=== PATIENT | female | born 1955 | race Hispanic/Latino ===

== ENCOUNTER 2022-11-08 12:00 | Inpatient (IN) | payer MEDICARE ==
[~2022-11-08] VITALS: Ht 160 cm; Wt 76.2 kg
[2022-11-08 09:32] LABS: BASOPHILS # (AUTO) 0.07 K/uL (0.00-0.20); BASOPHILS % (AUTO) 0.9 % (0.0-5.0); EOSINOPHILS # (AUTO) 0.23 K/uL (0.00-0.70); HEMATOCRIT 42.4 % (36-48); IMMATURE GRANULOCYTE ABSOLUTE 0.04 K/uL (0-1); LYMPHOCYTES % (AUTO) 26.8 % (21.0-51.0); MEAN CORPUSCULAR HEMOGLOBIN 27.9 pg (27.0-33.0); MEAN CORPUSCULAR VOLUME 84.6 fL (79-99); MONOCYTES # (AUTO) 0.5 K/uL (0.1-1.0); MONOCYTES % (AUTO) 6.5 % (3.0-13.0); NEUTROPHILS # (AUTO) 4.7 K/uL (1.8-7.7); NEUTROPHILS % (AUTO) 62.3 % (40.0-77.0); PLATELET COUNT (AUTO) 254 K/uL (130-400); RED BLOOD CELL COUNT(AUTO) 5.01 MIL/uL (4.00-5.50); RED CELL DISTRIBUTION WIDTH 12.9 % (11.0-15.5); WHITE BLOOD COUNT (AUTO) 7.6 K/uL (4.8-10.8)
[2022-11-08 09:44] LABS: INR < 0.93 (0.85-1.15); PROTHROMBIN TIME 10.5 SEC (9.6-11.6)
[2022-11-08 09:45] LABS: PARTIAL THROMBOPLASTIN TIME 29.9 SEC (26.3-35.5)
[2022-11-08 09:46] VITALS: BP 176/81; PULSE 67; RESP 18
[2022-11-08 10:01] LABS: ALBUMIN 3.8 g/dL (3.5-5.0); CREATININE 1.1 mg/dL (0.5-1.5); POTASSIUM 3.9 mmol/L (3.5-5.1)
[2022-11-08 10:16] LABS: APPEARANCE,URINE CLEAR (CLEAR); BILIRUBIN,URINE NEGATIVE (NEGATIVE); COLOR,URINE LIGHT-YELLOW (YELLOW); GLUCOSE, URINE (UA) NEGATIVE (NEGATIVE); KETONES,URINE NEGATIVE (NEGATIVE); LEUKOCYTE ESTERASE ,URINE NEGATIVE Leu/uL (NEGATIVE); NITRATE,URINE NEGATIVE (NEGATIVE); OCCULT BLOOD,URINE NEGATIVE (NEGATIVE); PROTEIN,URINE NEGATIVE (NEGATIVE); UROBILINOGEN,URINE 0.2 mg/dL (0.2-1.0)
[2022-11-08 10:30] LABS: ADD UA MICROSCOPIC NO
[~2022-11-08 12:00] MED LIST: ALBUTEROL SULF IH; ASCO100031 PO; ATEN1TAB3 PO; BUPR-113 PO; ESCI-8 PO; FENO67CA14 PO; FISH1CAP63 PO; FLUT16H NS; LORA10TA7 PO; MAGN500C4 PO; MULT-1367 PO; POTA-202 PO; TEMA15CA PO; TRAM50TA4 PO; TYLENOL ARTHRITIS PO; VITAMIN D3 PO
[2022-11-11] VITALS (26 sets, daily range): BP systolic 93–146; BP diastolic 56–95; PULSE 61–98; RESP 14–20; O2SAT 96
[2022-11-11] MEDS ORDERED: KETOROLAC 30MG VIAL (30MG/ML) ONE (07:12)
[2022-11-11] MEDS ORDERED: ROPIVACAINE 0.5% 5MG/ML 30ML IJ ONE (07:12)
[2022-11-11] MEDS ORDERED: CLINDAMYCIN IVPB 900MG/50ML 0 ML IV ONE (07:15)
[2022-11-11] MEDS ORDERED: LACTATED RINGERS 1000ML 1,000 ML IV ONE (07:15)
[2022-11-11] MEDS ORDERED: CEFAZOLIN SODIUM 2 GM VIAL ONE (07:41)
[2022-11-11] MEDS ORDERED: TRANEXAMIC ACID 1000MG/10ML ONE ×2 (07:42→09:01)
[2022-11-11] MEDS ORDERED: SUCCINYLCHOLINE CHLORIDE 20 MG/ML 10 ML VIAL ONE (08:03)
[2022-11-11] MEDS ORDERED: LIDOCAINE PF 100MG/5ML (2%) SYRINGE 5ML ONE (08:03)
[2022-11-11] MEDS ORDERED: MIDAZOLAM HCL 1 MG/ML 2ML VIAL ONE (08:04)
[2022-11-11] MEDS ORDERED: PROPOFOL 10 MG/ML 20ML VIAL IV ONE (08:04)
[2022-11-11] MEDS ORDERED: ROCURONIUM 10MG/1ML SYR 10 MG/ML ML ONE (08:04)
[2022-11-11] MEDS ORDERED: FENTANYL CITRATE PF 50 MCG/1 ML 2ML VIAL ONE (08:05)
[2022-11-11] MEDS ORDERED: EPHEDRINE SULFATE 50 MG/ML AMPULE ONE (08:29)
[2022-11-11] MEDS ORDERED: GLYCOPYRROLATE 1 MG/5 ML SYRINGE ONE (09:05)
[2022-11-11] MEDS ORDERED: NEOSTIGMINE 5MG/5ML SYR IV ONE (10:18)
[2022-11-11] MEDS ORDERED: PHENYLEPHRINE HCL 10 MG/ML 1ML VIAL IV ONE (10:25)
[2022-11-11] MEDS ORDERED: TRAMADOL HCL 50 MG TABLET PO PRN (10:30)
[2022-11-11] MEDS ORDERED: POTASSIUM CHLORIDE 20MEQ/100ML 100 ML IV PRN (10:30)
[2022-11-11] MEDS ORDERED: FERROUS FUMARATE 324 MG TABLET PO PRN (10:30)
[2022-11-11] MEDS ORDERED: DiphenhydrAMINE HCL 50 MG/ML VIAL IVP PRN (10:30)
[2022-11-11] MEDS ORDERED: KETOROLAC 15MG/ML VIAL (15MG/ML) IV SCH (10:30)
[2022-11-11] MEDS ORDERED: CALCIUM CARB 500MG PO PRN (10:30)
[2022-11-11] MEDS ORDERED: POTASSIUM CHLORIDE 10% ELIXIR 20 MEQ/15 ML UDCUP PO PRN (10:30)
[2022-11-11] MEDS ORDERED: ONDANSETRON 4MG INJ IVP PRN (10:30)
[2022-11-11] MEDS ORDERED: MEPERIDINE-PF 25 MG/ML SYG ONE (11:11)
[2022-11-11] MEDS ORDERED: KETOROLAC 15MG/ML VIAL (15MG/ML) ONE (11:24)
[2022-11-11] MEDS: GABAPENTIN 100 MG CAPSULE PO SCH ×2 (13:40→21:03)
[2022-11-11] MEDS: HYDROCODONE/ACETAMINOPHEN 5/325 MG TAB PO PRN ×2 (15:33→23:36)
[2022-11-11] MEDS: CEFAZOLIN SODIUM 2 GM VIAL IVPB SCH ×2 (15:34→23:26)
[2022-11-11] MEDS: 0.9%NACL 1000ML 1,000 ML IV SCH ×2 (15:36→20:30)
[2022-11-11] MEDS: KETOROLAC 30MG VIAL (30MG/ML) IV SCH (21:03)
[2022-11-11] MEDS: CYCLOBENZAPRINE HCL 10 MG TABLET PO PRN (23:36)
[2022-11-12] VITALS (9 sets, daily range): BP systolic 91–136; BP diastolic 57–72; PULSE 70–95; RESP 17–20; O2SAT 96
[2022-11-12] MEDS: 0.9%NACL 1000ML 1,000 ML IV SCH (02:53)
[2022-11-12 04:35] LABS: HEMATOCRIT 27.5 % (36-48); MEAN CORPUSCULAR HEMOGLOBIN 28.2 pg (27.0-33.0); MEAN CORPUSCULAR HGB CONC 33.8 g/dL (32.0-36.0); MEAN CORPUSCULAR VOLUME 83.3 fL (79-99); RED BLOOD CELL COUNT(AUTO) 3.3 MIL/uL (4.00-5.50); RED CELL DISTRIBUTION WIDTH 13.1 % (11.0-15.5); WHITE BLOOD COUNT (AUTO) 10.4 K/uL (4.8-10.8)
[2022-11-12 04:50] LABS: CREATININE 0.9 mg/dL (0.5-1.5); POTASSIUM 3.2 mmol/L (3.5-5.1)
[2022-11-12] MEDS: KETOROLAC 30MG VIAL (30MG/ML) IV SCH (05:37)
[2022-11-12] MEDS: KCL 20 MEQ ERTAB PO PRN ×3 (06:23→12:02)
[2022-11-12] MEDS: POLYETHYLENE GLYCOL 3350 17 GM POWD.PACK PO SCH (08:18)
[2022-11-12] MEDS: GABAPENTIN 100 MG CAPSULE PO SCH (08:19)
[2022-11-12] MEDS: ASPIRIN 325MG EC TAB PO SCH (08:19)
[2022-11-12] MEDS: HYDROCODONE/ACETAMINOPHEN 5/325 MG TAB PO PRN ×4 (08:19→22:19)
[2022-11-12] MEDS ORDERED: KETOROLAC 30MG VIAL (30MG/ML) IV PRN (11:30)
[2022-11-12] MEDS: CYCLOBENZAPRINE HCL 10 MG TABLET PO PRN (22:19)
[2022-11-13] VITALS (8 sets, daily range): BP systolic 123–152; BP diastolic 61–92; PULSE 79–93; RESP 16–20; O2SAT 95–96
[2022-11-13] MEDS: HYDROCODONE/ACETAMINOPHEN 5/325 MG TAB PO PRN ×5 (04:53→21:14)
[2022-11-13] MEDS: POLYETHYLENE GLYCOL 3350 17 GM POWD.PACK PO SCH (08:49)
[2022-11-13] MEDS: ASPIRIN 325MG EC TAB PO SCH (08:49)
[2022-11-14 03:45] VITALS: BP 161/67; PULSE 91; RESP 18
[2022-11-14 08:00] VITALS: BP 147/86; PULSE 92; RESP 18
[2022-11-14] MEDS: ASPIRIN 325MG EC TAB PO SCH (09:07)
[2022-11-14] MEDS: POLYETHYLENE GLYCOL 3350 17 GM POWD.PACK PO SCH (09:07)
[2022-11-14] MEDS: HYDROCODONE/ACETAMINOPHEN 5/325 MG TAB PO PRN ×2 (09:08→12:56)
[2022-11-14] MEDS ORDERED: TEMAZEPAM 15 MG CAPSULE PO PRN (10:00)
[2022-11-14] MEDS ORDERED: LORATADINE 10 MG TABLET PO PRN (10:00)
[2022-11-14] MEDS ORDERED: FLUTICASONE PROPIONATE 50MCG/SPRAY 16 GM BOTTLE NS PRN (10:00)
[2022-11-14] MEDS ORDERED: BISACODYL 10 MG SUPP.RECT RC PRN (10:30)
[2022-11-14] MEDS ORDERED: ALBUTEROL SULFATE IH PRN (10:30)
[2022-11-14 12:00] VITALS: BP 144/82; PULSE 88; RESP 18
[2022-11-14 13:09] VITALS: O2SAT 95
[2022-11-14] MEDS ORDERED: HYDR-4060 PO (15:50)
[2022-11-14] MEDS ORDERED: DOCU-116 PO (15:50)
[2022-11-14] MEDS ORDERED: CYCL-309 PO (15:50)
[2022-11-14] MEDS ORDERED: ASPI-891 PO (15:50)
[2022-11-14 16:00] VITALS: BP 133/78; PULSE 91; RESP 18
[2022-11-14] MEDS ORDERED: ASCORBIC ACID 500 MG TAB PO SCH (21:00)
[2022-11-14] MEDS ORDERED: FENOFIBRATE MICRONIZED 67 MG PO SCH (21:00)
[2022-11-14] MEDS ORDERED: NON-FORMULARY MEDICATION 1 EACH (Ascorbic Acid (Vitamin C) 1,000 MG) PO SCH (21:00)
[2022-11-15] MEDS ORDERED: NON-FORMULARY MEDICATION 1 EACH (Escitalopram Oxalate 10 MG) PO SCH (09:00)
[2022-11-15] MEDS ORDERED: KCL 20 MEQ ERTAB PO SCH (09:00)
[2022-11-15] MEDS ORDERED: CHLORTHALIDONE PO SCH (09:00)
[2022-11-15] MEDS ORDERED: CITALOPRAM 20 MG TABLET PO SCH (09:00)
[2022-11-15] MEDS ORDERED: NON-FORMULARY MEDICATION 1 EACH (Multivitamin 1 EACH) PO SCH (09:00)
[2022-11-15] MEDS ORDERED: MULTIVITAMIN TABLET PO SCH (09:00)
[2022-11-15] MEDS ORDERED: BUPROPION HCL 150 MG TABLET.SA PO SCH (09:00)
[2022-11-15] MEDS ORDERED: HOME MEDICATION 1 EACH PO SCH (09:00)
[2022-11-15] MEDS ORDERED: ATENOLOL PO SCH (09:00)
== END 2022-11-14 17:00 | DRG 470 ==
LOC: OBSVTOIN 11-11 07:02 → DAHIP 11-11 07:02 → 4CH 11-11 11:35 → EDSTATUS 11-11 12:00
PROVIDERS: ADMIT Student in an Organized Health Care Education/Training Program; ATTEND Student in an Organized Health Care Education/Training Program
PROC: 3E0T3BZ Introduction of Anesthetic Agent into Peripheral Nerves and Plexi, Percutaneous Approach (ICD-10-PCS; 2022-11-11)
PROC: 3E0T33Z Introduction of Anti-inflammatory into Peripheral Nerves and Plexi, Percutaneous Approach (ICD-10-PCS; 2022-11-11)
PROC: 0SRD0J9 Replacement of Left Knee Joint with Synthetic Substitute, Cemented, Open Approach (ICD-10-PCS; principal; 2022-11-11 08:06)
DX: M17.12 Unilateral primary osteoarthritis, left knee (principal); D62 Acute posthemorrhagic anemia
CPT/HCPCS: 36415; 73560; 80048; 81003; 82040; 84134; 85025; 85027; 85610; 85730; 86140; 87088; 87641; 93005; 97039; G0378; J0330; J1885; J2001; J2175; J2250; J2371; J2704; J2710; J2795; J3010; J3490; J7120; A4215; A4221; A4222; A4223; A4649; A4663; A4930; A5120; A6255; C1713; C1776; G0168; J0690